=== PATIENT | female | born 1940 | race Caucasian/White ===

== ENCOUNTER 2017-02-14 11:37 | Day surgery (SDC) | payer MEDICARE, OTHER ==
[2017-02-14 11:50] VITALS: BP 123/70
== END 2017-02-14 11:38 | disposition home or self-care (01) ==
LOC: AMB 11:37
PROVIDERS: ATTEND Ophthalmology
PROC: 085K3ZZ Destruction of Left Lens, Percutaneous Approach (ICD-10-PCS; principal; 2017-02-14)
DX: E03.9 Hypothyroidism, unspecified; Z68.22 Body mass index [BMI] 22.0-22.9, adult; H26.492 Other secondary cataract, left eye

== ENCOUNTER 2017-03-14 14:20 | Day surgery (SDC) | payer MEDICARE, OTHER ==
[2017-03-14 14:29] VITALS: BP 133/73
== END 2017-03-14 14:21 | disposition home or self-care (01) ==
LOC: AMB 14:20
PROVIDERS: ATTEND Ophthalmology
PROC: 085J3ZZ Destruction of Right Lens, Percutaneous Approach (ICD-10-PCS; principal; 2017-03-14)
DX: H26.491 Other secondary cataract, right eye; Z68.22 Body mass index [BMI] 22.0-22.9, adult; E03.9 Hypothyroidism, unspecified